=== PATIENT | female | born 1985 | race Caucasian/White ===

== ENCOUNTER 2016-08-07 07:56 | Emergency (ER) | payer OTHER ==
[2016-08-07 08:40] LABS: BILIRUBIN 1+ mg/dL (NEGATIVE); BLOOD 3+ Ery/uL (NEGATIVE); CLARITY CLEAR (CLEAR); COLOR AMBER (YELLOW); GLUCOSE (U) NORMAL (NORMAL); KETONE (U) 1+ (SMALL) mg/dL (NEGATIVE); LEUKOCYTES NEGATIVE Leu/uL (NEGATIVE); NITRITE NEGATIVE (NEGATIVE); PROTEIN NEGATIVE (NEGATIVE); SPECIFIC GRAVITY 1.025 (1.001-1.030); UROBILINOGEN 0.2 mg/dL (0.2-1.0); pH 5.5 (5.0-9.0)
[2016-08-07 08:46] LABS: MUCOUS TRACE
[2016-08-07 09:04] LABS: BASOPHIL 0.4 % (0-2); EOSINOPHIL 1.1 % (0-5); HCT 43.2 % (37.0-47.0); HGB 15.2 g/dl (12.5-16.0); LYMPHOCYTE 25.1 % (15-48); MCH 31.2 pg (25.0-31.0); MCHC 35.2 g/dL (32.0-36.0); MCV 88.7 fL (78.0-100.0); MONOCYTE 7.6 % (0-12); MPV 9.6 fL (6.0-9.5); NEUTROPHIL 65.8 % (41-80); PLT 291 K/uL (150-400); RBC 4.87 M/uL (4.20-5.40); RDW 12.2 % (11.5-14.0); WBC 5.7 K/uL (4.0-10.5)
[2016-08-07 09:42] LABS: CREATININE 0.9 mg/dL (0.5-1.0); POTASSIUM 3.6 mmol/L (3.5-5.1)
== END 2016-08-07 10:25 | disposition home or self-care (01) ==
LOC: FER 07:56
PROVIDERS: Emergency Medicine
DX: R10.31 Right lower quadrant pain (principal); R11.2 Nausea with vomiting, unspecified; F17.210 Nicotine dependence, cigarettes, uncomplicated; Z86.19 Personal history of other infectious and parasitic diseases; Z88.0 Allergy status to penicillin; Z88.1 Allergy status to other antibiotic agents; Z98.890 Other specified postprocedural states; Z90.49 Acquired absence of other specified parts of digestive tract; Z90.89 Acquired absence of other organs
CPT/HCPCS: 36415; 71010; 74000; 80048; 81001; 85025; J1885; J2405